=== PATIENT | male | born 1975 | race Caucasian/White ===

== ENCOUNTER 2024-03-21 06:23 | Day surgery (SDC) | payer OTHER, SELFPAY | END 2024-03-21 11:34 | disposition home or self-care (01) | LOC: GI 06:23 | PROVIDERS: ATTENDING PHYSICIAN Specialist | DX: K22.89 Other specified disease of esophagus (principal); K22.711 Barrett's esophagus with high grade dysplasia | CPT/HCPCS: 43239; 88305 ==